=== PATIENT | male | born 1970 | race Caucasian/White ===

== ENCOUNTER 2016-12-12 17:35 | Emergency (ER) | payer MEDICAID ==
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
[2016-12-12 17:50] LABS: % IMMATURE GRANULYOCYTES 0.4 % (0.0-1.1); ABSOLUTE IMMATURE GRANULOCYTES 0.03 10^3/uL (0.00-0.10); ADD DIFF? NO; ADD MORPH? NO; ADD SCAN? NO; ATYPICAL LYMPHOCYTE FLAG 10 (0-99); FRAGMENT RBC FLAG 0 (0-99); HEMATOCRIT 44.6 % (40.0-51.0); HEMOGLOBIN 15.4 g/dL (13.7-17.5); LEFT SHIFT FLG 0 (0-99); LIPEMIA HEMOLYSIS FLAG 90 (0-99); MEAN CELL HEMOGLOBIN 31.7 pg (27.9-34.1); MEAN CELL HEMOGLOBIN CONCENTR. 34.5 g/dL (32.4-36.7); MEAN CELL VOLUME 91.8 fL (81.5-99.8); MEAN PLATELET VOLUME 9.8 fL (8.7-11.7); PLATELET CLUMPS FLAG 0 (0-99); PLATELET COUNT 344 10^3/uL (150-400); RED BLOOD CELL COUNT 4.86 10^6/uL (4.40-6.38); RED CELL DISTRIBUTION WIDTH 12.9 % (11.5-15.2)
[2016-12-12 18:28] VITALS: BP 143/93; PULSE 106; RESP 16; O2SAT 97
== END 2016-12-12 20:19 | disposition home or self-care (01) ==
LOC: EDUNIT#
PROC: 0HQDXZZ Repair Right Lower Arm Skin, External Approach (ICD-10-PCS; principal; 2016-12-12)
DX: S51.811A Laceration without foreign body of right forearm, initial encounter (principal); Z87.891 Personal history of nicotine dependence; W26.0XXA Contact with knife, initial encounter

== ENCOUNTER 2018-02-13 20:14 | Emergency (ER) | payer MEDICAID ==
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
[2018-02-13] MEDS ORDERED: HYDROCODONE/APAP 5/325 TAB ONE (20:35)
[2018-02-13] MEDS ORDERED: HYDROCODONE/APAP 5/325 TAB PO ONE (20:36)
[2018-02-13 21:34] VITALS: BP 148/95
[2018-02-13] MEDS ORDERED: OXYCODONE/APAP 5/325MG PREPACK#4 BTL TAKEHOME ONE (21:39)
[2018-02-13] MEDS ORDERED: ONDANSETRON 4MG PREPACK#2 BTL TAKEHOME ONE (21:39)
== END 2018-02-13 21:36 | disposition home or self-care (01) ==
DX: S42.021A Displaced fracture of shaft of right clavicle, initial encounter for closed fracture (principal); S22.41XA Multiple fractures of ribs, right side, initial encounter for closed fracture; V00.141A Fall from scooter (nonmotorized), initial encounter; Y93.89 Activity, other specified; Y92.9 Unspecified place or not applicable; Y99.9 Unspecified external cause status

== ENCOUNTER 2018-02-14 11:15 | Emergency (ER) | payer MEDICAID ==
[2018-02-14] MEDS ORDERED: KETOROLAC 30 MG/1 ML SDV IM ONE (11:44)
[2018-02-14] MEDS ORDERED: KETAMINE 500 MG/10 ML VIAL NASAL ONE (11:44)
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
[2018-02-14 13:32] VITALS: BP 141/94
--- NOTE | 2018-02-14 16:43 | ASMTCMCOM ---
CM Note CM Note Notes: PT called CM office to request assistance scheduling a follow up appointment. Pt indicated PCP is out of the office. This SW called [facility] [phone] to schedule appointment with secondary/backup provider. VM was left to call main line. Pt must have appointment with PCP within two days to obtain referral for surgeon. Pt does not have primary phone number but requested call back to [phone]. Date Signed: 02/14/2018 04:43 PM Electronically Signed By:Viral Hines LCSW
--- NOTE | 2018-02-15 13:12 | ASMTCMCOM ---
CM Note CM Note Notes: Talked with patient regarding follow up with PCP. Patient scheduled with a follow up appointment with Dr. Rueda on February 18 at 1000. I have contaced Gaby at [facility] and have faxed a copy of patient's (02/14/18) ER visit to Dr. Rueda Date Signed: 02/15/2018 01:11 PM Electronically Signed By:Lacey Taylor RN
== END 2018-02-14 13:32 | disposition home or self-care (01) ==
DX: S42.001A Fracture of unspecified part of right clavicle, initial encounter for closed fracture (principal); S22.41XA Multiple fractures of ribs, right side, initial encounter for closed fracture; V28.0XXA Motorcycle driver injured in noncollision transport accident in nontraffic accident, initial encounter
CPT/HCPCS: J1885

== ENCOUNTER 2018-02-20 11:05 | Day surgery (SDC) | payer MEDICAID ==
[2018-02-20] MEDS ORDERED: LR 1,000 ML IV ONE (11:27)
[2018-02-20] MEDS ORDERED: LIDOCAINE 1% 2 ML INJ ID PRN (11:27)
[2018-02-20] MEDS ORDERED: ceFAZolin 2 GM/DEXTROSE 100 ML IV ONE (11:48)
[2018-02-20] MEDS ORDERED: ACETAMINOPHEN 500 MG TAB PO ONE (11:48)
[2018-02-20] MEDS ORDERED: BUPIVACAINE/EPI 0.5% 30 ML SDV ONE (12:16)
[2018-02-20] MEDS ORDERED: MIDAZOLAM 2 MG/2 ML VIAL ONE (12:24)
[2018-02-20] MEDS ORDERED: ONDANSETRON 4 MG/2 ML VIAL ONE (12:27)
[2018-02-20] MEDS ORDERED: LIDOCAINE 2% 100 MG/5 ML SYR ONE (12:27)
[2018-02-20] MEDS ORDERED: DEXAMETHASONE 4 MG/ML VIAL ONE (12:27)
[2018-02-20] MEDS ORDERED: KETOROLAC 30 MG/1 ML SDV ONE (12:28)
[2018-02-20] MEDS ORDERED: PROPOFOL 200 MG/20 ML VIAL ONE ×2 (12:28→12:53)
[2018-02-20] MEDS ORDERED: fentaNYL 250 MCG/5 ML INJ ONE (12:28)
--- NOTE | 2018-02-20 12:34 | PDHPUP ---
History & Physical Update H&P update statement: This history and physical update is based on an assessment of the patient which was completed after admission or registration (within 24 hours), but prior to the surgery/procedure. H&P update: H&P reviewed & patient examined, no change in patient's condition since H&P completed
[2018-02-20] MEDS ORDERED: RANITIDINE 50 MG/2 ML VIAL ONE (12:53)
--- NOTE | 2018-02-20 13:19 | PDANEPAE ---
ANE History of Present Illness R clavicle fx, ORIF ANE Past Medical History - Cardiovascular History Hx Hypertension: Yes Hx Arrhythmias: No Hx Chest Pain: No Hx Coronary Artery / Peripheral Vascular Disease: No Hx CHF / Valvular Disease: No Hx Palpitations: No Cardiovascular History Comment: NEW DX - Pulmonary History Hx COPD: No Hx Asthma/Reactive Airway Disease: No Hx Recent Upper Respiratory Infection: No Hx Oxygen in Use at Home: No Hx Sleep Apnea: No Sleep Apnea Screening Result - Last Documented: Positive - Neurologic History Hx Cerebrovascular Accident: No Hx Seizures: No Hx Dementia: No - Endocrine History Hx Diabetes: No - Renal History Hx Renal Disorders: No - Liver History Hx Hepatic Disorders: No - Neurological & Psychiatric Hx Hx Neurological and Psychiatric Disorders: Yes Neurological / Psychiatric History Comment: DEPRESSION. ADHD - Cancer History Hx Cancer: No - Congenital Disorder History Hx Congenital Disorders: No - GI History Hx Gastrointestinal Disorders: Yes Gastrointestinal History Comment: REFLUX - Other Health History Other Health History: NONE - Chronic Pain History Chronic Pain: No - Surgical History Prior Surgeries: RIGHT HAND SURGERY. LEFT TIB/ FIB REPAIR. NASAL SURGERY. LEFT HAND RECONSTRUCTION 1997. L BIG TOE. R EAR SX. L FOOT/METATARSAL SX ANE Review of Systems Review of Systems: - Exercise capacity METS (RN): 5 METS ANE Patient History - Allergies Allergies/Adverse Reactions: No Known Allergies Allergy (Verified 02/14/18 11:27) - Home Medications Home Medications: Amphet Asp and D/Amphet [Adderall 20 mg (*)] 20 mg PO TID@0800,1200,1500 [Last Taken 02/20/18 08:00] Esomeprazole Mag Trihydrate [Nexium] 40 mg PO DAILY 02/19/18 [Last Taken 08:00] Lisinopril [Zestril 10 mg (*)] 10 mg PO DAILY 02/19/18 [Last Taken 02/20/18 08: 00] Venlafaxine Xr [Effexor Xr] 450 mg PO DAILY 02/19/18 [Last Taken 02/20/18 08:00] - NPO status NPO Since - Liquids (Date): 02/20/18 NPO Since - Liquids (Time): 08:00 NPO Since - Solids (Date): 02/19/18 NPO Since - Solids (Time): 20:30 - Smoking Hx Smoking Status: Never smoked - Family Anes Hx Family Hx Anesthesia Complications: NONE ANE Labs/Vital Signs - Vital Signs Blood Pressure: 151/99 Heart Rate: 98 Respiratory Rate: 20 O2 Sat (%): 95 Height: 172.72 cm Weight: 77.111 kg ANE Physical Exam - Airway Neck exam: FROM Mallampati Score: Class 2 Mouth exam: normal dental/mouth exam - Pulmonary Pulmonary: no respiratory distress - Cardiovascular Cardiovascular: regular rate and rhythym - ASA Status ASA Status: III ANE Anesthesia Plan Anesthesia Plan: GA w LMA
[2018-02-20] MEDS ORDERED: HYDROmorphONE/DILAUDID 2 MG/ML INJ ONE (13:24)
[2018-02-20] MEDS ORDERED: KETAMINE 200 MG/20 ML VIAL ONE (13:42)
--- NOTE | 2018-02-20 14:29 | POSTOPPROG ---
Post Op Note Date of Operation: 02/20/18 Surgeon: Filipe Umanzor Hollow Core Door Frame Assembler: ROBERT Singh Anesthesiologist: DO Chago Anesthesia: GET(General Endotracheal) Pre-op Diagnosis: R displaced comminuted clavicel fracture Post-op Diagnosis: same Procedure: R clavicle ORIF Inf/Abcess present in the surg proc area at time of surgery?: No EBL: 50-100
[2018-02-20] MEDS ORDERED: fentaNYL 100 MCG/2 ML INJ ONE (14:48)
[2018-02-20] MEDS ORDERED: HYDROCODONE/APAP 10/325 TAB ONE (14:58)
[2018-02-20] MEDS ORDERED: fentaNYL 100 MCG/2 ML INJ IVP PRN (15:06)
[2018-02-20] MEDS ORDERED: MEPERIDINE 25 MG/0.5 ML AMP IVP PRN (15:06)
[2018-02-20] MEDS ORDERED: PROMETHAZINE HCL 25 MG/ML INJ IVP PRN (15:06)
[2018-02-20] MEDS ORDERED: ONDANSETRON 4 MG/2 ML VIAL IVP PRN (15:06)
[2018-02-20] MEDS ORDERED: LR 500 ML IV PRN (15:06)
[2018-02-20] MEDS ORDERED: HYDROmorphONE/DILAUDID 2 MG/ML INJ IVP PRN (15:06)
[2018-02-20] MEDS ORDERED: NALOXONE HCL 0.4 MG/ML INJ IVP PRN (15:06)
[2018-02-20] MEDS ORDERED: HYDROCODONE/APAP 5/325 TAB PO PRN (15:06)
[2018-02-20 17:16] VITALS: BP 138/76
--- NOTE | 2018-02-21 13:31 | POSTANESTH ---
Post Anesthetic Evaluation Cardiovascular Status: Normal, Stable Respiratory Status: Normal, Stable Level of Consciousness/Mental Status: Can Participate in Eval Pain Control: Adequate, Prn Tx Ordered Nausea/Vomiting Control: Adequate, Prn Tx Ordered Complications Possibly Related to Anesthesia: None Noted (Patient seen prior to DC from PACU and met all criteria for DC)
--- NOTE | 2018-02-21 19:35 | GOP ---
DATE OF OPERATION: 02/20/2018 SURGEON: Filipe Umanzor MD PREOPERATIVE DIAGNOSIS: POSTOPERATIVE DIAGNOSIS: PROCEDURE PERFORMED: FINDINGS: DESCRIPTION OF PROCEDURE: /[id number]/MODL
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
== END 2018-02-20 17:41 | disposition home or self-care (01) ==
LOC: FSGY 11:05
PROVIDERS: ATTEND Orthopaedic Surgery
PROC: 0PS904Z Reposition Right Clavicle with Internal Fixation Device, Open Approach (ICD-10-PCS; principal; 2018-02-20 12:30)
DX: S42.021A Displaced fracture of shaft of right clavicle, initial encounter for closed fracture (principal); I10 Essential (primary) hypertension; F90.9 Attention-deficit hyperactivity disorder, unspecified type; F32.9 Major depressive disorder, single episode, unspecified; K21.9 Gastro-esophageal reflux disease without esophagitis; V00.141A Fall from scooter (nonmotorized), initial encounter; Y92.9 Unspecified place or not applicable
CPT/HCPCS: C1713; J0690; J1100; J1170; J1885; J2001; J2250; J2405; J2704; J2780; J3010

== ENCOUNTER → 2018-04-10 | Outpatient (CLI) | payer MEDICAID | LOC: FIMAGING 18:40 | PROVIDERS: ATTEND Orthopaedic Surgery | DX: G54.0 Brachial plexus disorders (principal); S40.011D Contusion of right shoulder, subsequent encounter; R60.9 Edema, unspecified; M12.811 Other specific arthropathies, not elsewhere classified, right shoulder ==

== ENCOUNTER → 2018-04-23 | Outpatient (CLI) | payer MEDICAID | LOC: FIMAGING 16:08 | PROVIDERS: ATTEND Orthopaedic Surgery | DX: S22.41XA Multiple fractures of ribs, right side, initial encounter for closed fracture (principal); S42.114A Nondisplaced fracture of body of scapula, right shoulder, initial encounter for closed fracture; S20.211A Contusion of right front wall of thorax, initial encounter; G54.0 Brachial plexus disorders; M62.89 Other specified disorders of muscle ==